=== PATIENT | male | born 1995 | race American Indian/Alaskan Native ===

== ENCOUNTER 2020-10-25 14:41 | Emergency (ER) | payer OTHER ==
[2020-10-25 16:27] VITALS: BP 128/70
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
== END 2020-10-25 19:45 | disposition home or self-care (01) ==
LOC: ED 14:41
DX: S16.1XXA Strain of muscle, fascia and tendon at neck level, initial encounter (principal); S39.012A Strain of muscle, fascia and tendon of lower back, initial encounter; S09.90XA Unspecified injury of head, initial encounter; Z79.899 Other long term (current) drug therapy; Z98.890 Other specified postprocedural states; V49.69XA Unspecified car occupant injured in collision with other motor vehicles in traffic accident, initial encounter; Y92.410 Unspecified street and highway as the place of occurrence of the external cause; Y93.89 Activity, other specified; Y99.8 Other external cause status
CPT/HCPCS: 70450; 72070; 72125

== ENCOUNTER 2021-01-06 14:18 | Emergency (ER) | payer SELFPAY ==
[2021-01-06 16:28] VITALS: BP 111/69
[2021-01-06] MEDS ORDERED: LIDOCAINE (1%) 10 MG/1 ML VIAL 20 ML MDV INFILTRATI ONE (18:42)
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
== END 2021-01-06 19:15 | disposition home or self-care (01) ==
LOC: ED 14:18
DX: L02.31 Cutaneous abscess of buttock (principal); J45.909 Unspecified asthma, uncomplicated; Z98.890 Other specified postprocedural states; Z79.899 Other long term (current) drug therapy
CPT/HCPCS: 99282

== ENCOUNTER 2021-02-17 10:30 | Outpatient (CLI) | payer OTHER ==
--- NOTE | 2021-02-17 11:19 | XRay Report ---
Left shoulder 3 views INDICATION: Shoulder pain FINDINGS: AC joint and glenohumeral joint appear normal. No acute fracture or dislocation. No soft ti ssue abnormality is seen. Signer Name: Grady Spears MD Signed: 02/17/2021 11:15 AM Workstation Name: [id number]
== END 2021-02-17 10:31 | disposition home or self-care (01) ==
LOC: XRAY 10:30
PROVIDERS: ATTEND Internal Medicine
DX: Z02.71 Encounter for disability determination (principal)
CPT/HCPCS: 72100